=== PATIENT | male | born 1935 | race Caucasian/White ===

== ENCOUNTER 2017-08-24 15:57 | Emergency (ER) | payer OTHER ==
[2017-08-24 15:59] VITALS: BP 144/70; PULSE 92; RESP 14; TEMP 98.2; O2SAT 98
--- NOTE | 2017-08-24 16:38 | RADRPT ---
EXAM DATE/TIME: 08/24/2017 16:16 [facility] COMPARISON: No previous studies available for comparison. INDICATIONS : Shortness of breath. MEDICAL HISTORY : None. SURGICAL HISTORY : cervical spine. ENCOUNTER: Initial ACUITY: 1 day PAIN SCORE: 0/10 LOCATION: Bilateral chest FINDINGS: PA and lateral views of the chest demonstrate the lungs to be symmetrically aerated without evidence of mass, infiltrate or effusion. Some mild atelectasis in the left lung base. The cardiomediastinal c ontours are unremarkable. Osseous structures are intact. CONCLUSION: Mild atelectasis left lung base. Otherwise, the lungs are grossly clear. Todd Lugo MD on August 24, 2017 at 16:35 Board Certified Radiologist. This report was verified electronically.
[2017-08-24 17:03] LABS: AUTOMATED NEUTROPHIL # 13.8 TH/MM3 (1.8-7.7); BASOPHIL # 0.1 TH/MM3 (0-0.2); BASOPHIL % 0.8 % (0.0-2.0); EOSINOPHIL # 0.1 TH/MM3 (0-0.4); EOSINOPHIL % 0.8 % (0.0-4.0); HEMATOCRIT 44.1 % (39.0-51.0); LYMPHOCYTE # 1.4 TH/MM3 (1.0-4.8); MEAN CELL VOLUME 86.6 FL (80.0-100.0); MEAN CORPUSCULAR HEMOGLOBIN 29.5 PG (27.0-34.0); MEAN CORPUSCULAR HGB CONC 34.1 % (32.0-36.0); MEAN PLATELET VOLUME 9.4 FL (7.0-11.0); MONO % 9.2 % (0.0-8.0); MONOCYTE # 1.6 TH/MM3 (0-0.9); NEUT % 81.2 % (16.0-70.0); PLATELET COUNT 290 TH/MM3 (150-450)
[2017-08-24 17:39] LABS: ALBUMIN 2.9 GM/DL (3.4-5.0); ALT (GPT) 20 U/L (12-78); AST (GOT) 28 U/L (15-37); BLOOD UREA NITROGEN 33 MG/DL (7-18); CALCIUM 9.2 MG/DL (8.5-10.1); CHLORIDE 98 MEQ/L (98-107); CREATININE 1.58 MG/DL (0.60-1.30); GLOMERULAR FILTRATION RATE 42 ML/MIN (>89); GLUCOSE,RANDOM 119 MG/DL (74-106); MAGNESIUM 2.3 MG/DL (1.5-2.5); SODIUM (NA) 138 MEQ/L (136-145)
[2017-08-24 17:41] LABS: ALKALINE PHOSPHATASE 99 U/L (45-117); TOTAL PROTEIN 7.7 GM/DL (6.4-8.2)
[2017-08-24] MEDS ORDERED: SODIUM CHLOR 0.9% 1000 ML INJ 1,000 ML IV ONE (18:00)
--- NOTE | 2017-08-24 18:10 | PD ---
HPI Chief Complaint: General Weakness Time Seen by Provider: 17:44 Travel History International Travel<30 days: No Contact w/Intl Traveler<30days: No Traveled to known affect area: No History of Present Illness HPI 82-year-old male presents to the emergency department for evaluation of generalized weakness started on Monday, 3 days ago. Patient denies any headache. No fevers or chills. He denies any chest pain or shortness breath. No abdominal pain. No nausea, vomiting, diarrhea. He states that he feels generally weak and has body aches. He states he has not wanted to get out of bed for the past 3 days. He also has a decreased appetite. Patient states that he lives with daughter. Patient denies any chronic medical problems or taking any prescribed medications. He denies any syncope or falls. He denies any head injury. He has no pain at this time. Moderate severity. No exacerbating or alleviating factors. PFSH Social History Alcohol Use: No Tobacco Use: No Substance Use: No Allergies-Medications (Allergen,Severity, Reaction): Coded Allergies: No Known Allergies (Unverified Adverse Reaction, Unknown, 08/24/17) Reported Meds & Prescriptions Reported Meds & Active Scripts Active Ciprofloxacin (Ciprofloxacin HCl) 500 Mg Tab 500 Mg PO BID 10 Days Review of Systems Except as stated in HPI: all other systems reviewed are Neg Physical Exam Narrative GENERAL: Well-nourished, well-developed elderly male patient, afebrile. SKIN: Focused skin assessment warm/dry. HEAD: Normocephalic. Atraumatic. ENT: Mucosa pink and moist. No erythema or exudates. No uvular edema. No uvular , palatal, or tonsillar deviation. Airway patent. Nasal turbinates appear normal without nasal blood, purulent drainage or septal hematoma. Bilateral tympanic membranes are clear without erythema or perforation. EYES: No scleral icterus. No injection or drainage. NECK: Supple, trachea midline. No JVD or lymphadenopathy. CARDIOVASCULAR: Regular rate and rhythm without murmurs, gallops, or rubs. RESPIRATORY: Breath sounds equal bilaterally. No accessory muscle use. Lungs sounds clear to auscultation. GASTROINTESTINAL: Abdomen soft and nondistended. Patient has left lower quadrant tenderness to palpation. MUSCULOSKELETAL: No cyanosis, or edema. Bilateral upper and lower extremity strength 5/5. All extremities are neurovascularly intact. BACK: Nontender without obvious deformity. No CVA tenderness. Data Data Last Documented VS Vital Signs Date Time Temp Pulse Resp B/P (MAP) Pulse Ox O2 Delivery O2 Flow Rate FiO2 08/24/17 18:25 Room Air 08/24/17 18:22 80 16 151/76 (101) 95 08/24/17 15:59 98.2 Orders Orders Complete Blood Count With Diff (08/24/17 16:03) Comprehensive Metabolic Panel (08/24/17 16:03) B-Type Natriuretic Peptide (08/24/17 16:03) Magnesium (Mg) (08/24/17 16:03) Urinalysis - C+S If Indicated (08/24/17 16:03) Chest, Pa & Lat (08/24/17 ) Lactic Acid Sepsis Protocol (08/24/17 17:52) Blood Culture (08/24/17 17:52) Creatine Kinase (Cpk) (08/24/17 17:52) Troponin I (08/24/17 17:52) Lipase (08/24/17 17:52) Electrocardiogram (08/24/17 ) Act Partial Throm Time (Ptt) (08/24/17 17:52) Prothrombin Time / Inr (Pt) (08/24/17 17:52) Ct Abd/Pel W Iv Contrast(Rout) (08/24/17 ) Sodium Chlor 0.9% 1000 Ml Inj (Ns 1000 M (08/24/17 18:00) Iohexol 350 Inj (Omnipaque 350 Inj) (08/24/17 19:40) Urine Culture (08/24/17 19:43) Potassium Chloride (Kcl) (08/24/17 20:15) Ceftriaxone Inj (Rocephin Inj) (08/24/17 20:15) Ed Discharge Order (08/24/17 20:23) Labs Laboratory Tests Test 08/24/17 16:44 08/24/17 18:25 08/24/17 19:43 White Blood Count 17.0 TH/MM3 Red Blood Count 5.10 MIL/MM3 Hemoglobin 15.0 GM/DL Hematocrit 44.1 % Mean Corpuscular Volume 86.6 FL Mean Corpuscular Hemoglobin 29.5 PG Mean Corpuscular Hemoglobin Concent 34.1 % Red Cell Distribution Width 14.0 % Platelet Count 290 TH/MM3 Mean Platelet Volume 9.4 FL Neutrophils (%) (Auto) 81.2 % Lymphocytes (%) (Auto) 8.0 % Monocytes (%) (Auto) 9.2 % Eosinophils (%) (Auto) 0.8 % Basophils (%) (Auto) 0.8 % Neutrophils # (Auto) 13.8 TH/MM3 Lymphocytes # (Auto) 1.4 TH/MM3 Monocytes # (Auto) 1.6 TH/MM3 Eosinophils # (Auto) 0.1 TH/MM3 Basophils # (Auto) 0.1 TH/MM3 CBC Comment DIFF FINAL Differential Comment Blood Urea Nitrogen 33 MG/DL Creatinine 1.58 MG/DL Random Glucose 119 MG/DL Total Protein 7.7 GM/DL Albumin 2.9 GM/DL Calcium Level 9.2 MG/DL Magnesium Level 2.3 MG/DL Alkaline Phosphatase 99 U/L Aspartate Amino Transf (AST/SGOT) 28 U/L Alanine Aminotransferase (ALT/SGPT) 20 U/L Total Bilirubin 1.0 MG/DL Sodium Level 138 MEQ/L Potassium Level 3.0 MEQ/L Chloride Level 98 MEQ/L Carbon Dioxide Level 29.0 MEQ/L Anion Gap 11 MEQ/L Estimat Glomerular Filtration Rate 42 ML/MIN Total Creatine Kinase 31 U/L Troponin I 0.03 NG/ML B-Type Natriuretic Peptide 73 PG/ML Lipase 56 U/L Prothrombin Time 11.7 SEC Prothromb Time International Ratio 1.2 RATIO Activated Partial Thromboplast Time 29.1 SEC Lactic Acid Level 1.8 mmol/L Urine Color YELLOW Urine Turbidity HAZY Urine pH 6.0 Urine Specific [place] 1.013 Urine Protein TRACE mg/dL Urine Glucose (UA) NEG mg/dL Urine Ketones NEG mg/dL Urine Occult Blood MOD Urine Nitrite NEG Urine Bilirubin NEG Urine Urobilinogen LESS THAN 2.0 MG/DL Urine Leukocyte Esterase LARGE Urine RBC 53 /hpf Urine WBC 60 /hpf Urine Squamous Epithelial Cells 3 /hpf Urine Bacteria FEW /hpf Urine Hyaline Casts 1 /lpf Urine Mucus FEW /lpf Microscopic Urinalysis Comment CULTURE INDICATED MDM Medical Decision Making Medical Screen Exam Complete: Yes Emergency Medical Condition: Yes Medical Record Reviewed: Yes Differential Diagnosis Electrolyte abnormality versus dehydration versus ACS versus UTI versus pneumonia versus viral syndrome Narrative Course 82-year-old male presents to the emergency department for evaluation of generalized weakness that started 3 days ago. Labs were initiated in triage. CBC shows leukocytosis 17.0. CMP shows hypokalemia of 3.0, BUN 33, creatinine 1.58. BNP is 73. Magnesium is 2.3. Chest x-ray shows mild atelectasis left lung base, otherwise lungs are grossly clear. Lactic acid, blood cultures 2, CK, troponin, lipase, UA are ordered and pending. CT abdomen/pelvis with IV contrast is ordered and pending. EKG shows sinus rhythm, heart rate 80, no acute ST changes. Lactic acid is 1.8. Lipase is 56. CK is 31. Troponin is 0.03. UA shows 53 RBC, [address] abdomen/pelvis shows abnormal appearance to gallbladder, however non-acute, dilated urinary bladder. Patient is given potassium 40 mEq by mouth, Rocephin 1 g IV. I discussed results with the patient and his daughter bedside. The patient states that he wants to go home. He does not want to be admitted at this time. His daughter feels comfortable taking him home. Due to dilated batter on CT scan, patient voided and then Weinstein was placed to see post residual. He had over 600 mL else. He is having urinary retention. He states he has a history of this as well as in the past. Patient will be discharged with a leg bag and instructed to follow up with urologist. He'll be discharged with a prescription for ciprofloxacin. He is to return here for any acute worsening of symptoms. His daughter and the patient verbalizes agreement to this. They will follow-up at the [facility]. The patient was discharged in stable condition with instructions, including return instructions and follow up instructions. Diagnosis Primary Impression: Urinary tract infection Qualified Codes: N30.01 - Acute cystitis with hematuria Additional Impression: Urinary retention Referrals: Primary Care Physician 2 days Patient Instructions: General Instructions, Urinary Tract Infection in Men (ED) Additional Instructions: Take antibiotic as directed until gone. Follow-up with urology regarding urinary retention. Follow-up with your primary care physician. Return to the emergency department for any acute worsening of symptoms. Med/Other Pt SpecificInfo: Prescription(s) given Scripts Ciprofloxacin (Ciprofloxacin) 500 Mg Tab 500 MG PO BID for Infection for 10 Days, #20 TAB 0 Refills Prov: Dianna Valdes 08/24/17 Disposition: DISCHARGE HOME Condition: Stable Dianna Valdes Aug 24, 2017 18:10
[2017-08-24 18:22] VITALS: BP 151/76; PULSE 80; RESP 16; O2SAT 95
[2017-08-24 18:56] LABS: INTERNATIONAL NORMALIZED RATIO 1.2 RATIO; PROTHROMBIN TIME - PATIENT 11.7 SEC (9.8-11.6)
[2017-08-24 19:04] LABS: TROPONIN I 0.03 NG/ML (0.02-0.05)
[2017-08-24] MEDS ORDERED: IOHEXOL 350 MG/ML 10 ML VIAL (for RAD DIAG) IVCONTRAST ONE (19:40)
[2017-08-24 20:01] LABS: BACTERIA, URINE FEW /hpf; BILIRUBIN, URINE NEG (NEG); BLOOD, URINE MOD (NEG); GLUCOSE,URINE NEG (NEG); HYALINE CAST, URINE 1 /lpf (RARE); KETONE, URINE NEG (NEG); MUCUS URINE FEW /lpf (OCC); NITRITE,URINE NEG (NEG); SQUAMOUS EPITHELIAL CELL URINE 3 /hpf (0-5); URINE COLOR YELLOW (YELLW/STRAW); URINE LEUKOCYTE ESTERASE LARGE (NEG)
--- NOTE | 2017-08-24 20:07 | RADRPT ---
EXAM DATE/TIME: 08/24/2017 19:22 [facility] COMPARISON: No previous studies available for comparison. INDICATIONS : General weakness, body aches and nausea. IV CONTRAST: 75 cc Omnipaque 350 (iohexol) IV ORAL CONTRAST: No oral contrast ingested. RADIATION DOSE: 8.83 CTDIvol (mGy) MEDICAL HISTORY : Chronic obstructive pulmonary disease. SURGICAL HISTORY : Appendectomy. ENCOUNTER: Initial ACUITY: 1 week PAIN SCALE: 0/10 LOCATION: Abdomen. TECHNIQUE: Volumetric scanning of the abdomen and pelvis was performed. Using automated exposure control and ad justment of the mA and/or kV according to patient size, radiation dose was kept as low as reasonably achievable to obtain optimal diagnostic quality images. DICOM format image data is available electro nically for review and comparison. FINDINGS: LOWER LUNGS: The visualized lower lungs are clear. LIVER: Homogeneous density without lesion. There is no dilation of the biliary tree. Focal wall thickening versus dependent debris in the neck region of the gallbladder.. SPLEEN: Normal size without lesion. PANCREAS: Within normal limits. KIDNEYS: Normal in size and shape. There is no mass, stone or hydronephrosis. ADRENAL GLANDS: Within normal limits. VASCULAR: There is no aortic aneurysm. BOWEL/MESENTERY: The stomach, small bowel, and colon demonstrate no acute abnormality. There is no free intraperitone al air or fluid. ABDOMINAL WALL: Within normal limits. RETROPERITONEUM: There is no lymphadenopathy. BLADDER: Mildly dilated. REPRODUCTIVE: Prominent prostatic enlargement. No evidence of pelvic mass or free fluid INGUINAL: There is no lymphadenopathy or hernia. MUSCULOSKELETAL: Within normal limits for patient age. CONCLUSION: Abnormal appearance of the gallbladder, however nonacute. Dilated urinary bladder. Андрей Feldman MD on August 24, 2017 at 20:02 Board Certified Radiologist. This report was verified electronically.
[2017-08-24] MEDS ORDERED: cefTRIAXone INJ 1,000 MG in SODIUM CHLORIDE 0.9% INJ 100 ML IV ONE (20:15)
[2017-08-24] MEDS ORDERED: POTASSIUM CHLORIDE 20 MEQ CONTROLLED RELEASE TAB PO ONE (20:15)
[2017-08-24] MEDS ORDERED: CIPR500T2 PO (20:22)
--- NOTE | 2017-08-24 20:22 | PD ---
Physical Exam Narrative General: The patient is a well-developed well-nourished male in no acute distress. Head and Neck exam: Head is normocephalic atraumatic. Eyes: Pupils are equal round and reactive to light. Nose: Midline septum with pink mucous membranes Mouth: Dentition unremarkable. Moist mucus membranes. Posterior oropharynx is not erythematous. No tonsillar hypertrophy. Uvula midline. Airway patent. Neck: No palpable lymphadenopathy. No nuchal rigidity. No thyromegaly. Cardiovascular: Regular rate and rhythm without murmurs, gallops, or rubs. Lungs: Clear to auscultation bilaterally. No wheezes, rhonchi, or rales. Abdomen: Soft, with suprapubic tenderness on palpation. No tenderness on palpation of the other quadrants of the abdomen. No guarding, rebound, or rigidity. Normal bowel sounds are audible. No tenderness on palpation of McBurney's point. Extremities: No clubbing, cyanosis, or edema. 2+ pulses in all 4 extremities. No calf tenderness on palpation. Back: No costovertebral angle tenderness to palpation. Neurologic Exam: Grossly nonfocal. Skin Exam: No rash noted. Intact skin that is warm and dry. Data Data Last Documented VS Vital Signs Date Time Temp Pulse Resp B/P (MAP) Pulse Ox O2 Delivery O2 Flow Rate FiO2 08/24/17 22:25 08/24/17 22:24 74 18 97 Room Air 08/24/17 15:59 98.2 Orders Orders Complete Blood Count With Diff (08/24/17 16:03) Comprehensive Metabolic Panel (08/24/17 16:03) B-Type Natriuretic Peptide (08/24/17 16:03) Magnesium (Mg) (08/24/17 16:03) Urinalysis - C+S If Indicated (08/24/17 16:03) Chest, Pa & Lat (08/24/17 ) Lactic Acid Sepsis Protocol (08/24/17 17:52) Blood Culture (08/24/17 17:52) Creatine Kinase (Cpk) (08/24/17 17:52) Troponin I (08/24/17 17:52) Lipase (08/24/17 17:52) Electrocardiogram (08/24/17 ) Act Partial Throm Time (Ptt) (08/24/17 17:52) Prothrombin Time / Inr (Pt) (08/24/17 17:52) Ct Abd/Pel W Iv Contrast(Rout) (08/24/17 ) Sodium Chlor 0.9% 1000 Ml Inj (Ns 1000 M (08/24/17 18:00) Iohexol 350 Inj (Omnipaque 350 Inj) (08/24/17 19:40) Urine Culture (08/24/17 19:43) Potassium Chloride (Kcl) (08/24/17 20:15) Ceftriaxone Inj (Rocephin Inj) (08/24/17 20:15) Ed Discharge Order (08/24/17 20:23) Labs Laboratory Tests Test 08/24/17 16:44 08/24/17 18:25 08/24/17 19:43 White Blood Count 17.0 TH/MM3 Red Blood Count 5.10 MIL/MM3 Hemoglobin 15.0 GM/DL Hematocrit 44.1 % Mean Corpuscular Volume 86.6 FL Mean Corpuscular Hemoglobin 29.5 PG Mean Corpuscular Hemoglobin Concent 34.1 % Red Cell Distribution Width 14.0 % Platelet Count 290 TH/MM3 Mean Platelet Volume 9.4 FL Neutrophils (%) (Auto) 81.2 % Lymphocytes (%) (Auto) 8.0 % Monocytes (%) (Auto) 9.2 % Eosinophils (%) (Auto) 0.8 % Basophils (%) (Auto) 0.8 % Neutrophils # (Auto) 13.8 TH/MM3 Lymphocytes # (Auto) 1.4 TH/MM3 Monocytes # (Auto) 1.6 TH/MM3 Eosinophils # (Auto) 0.1 TH/MM3 Basophils # (Auto) 0.1 TH/MM3 CBC Comment DIFF FINAL Differential Comment Blood Urea Nitrogen 33 MG/DL Creatinine 1.58 MG/DL Random Glucose 119 MG/DL Total Protein 7.7 GM/DL Albumin 2.9 GM/DL Calcium Level 9.2 MG/DL Magnesium Level 2.3 MG/DL Alkaline Phosphatase 99 U/L Aspartate Amino Transf (AST/SGOT) 28 U/L Alanine Aminotransferase (ALT/SGPT) 20 U/L Total Bilirubin 1.0 MG/DL Sodium Level 138 MEQ/L Potassium Level 3.0 MEQ/L Chloride Level 98 MEQ/L Carbon Dioxide Level 29.0 MEQ/L Anion Gap 11 MEQ/L Estimat Glomerular Filtration Rate 42 ML/MIN Total Creatine Kinase 31 U/L Troponin I 0.03 NG/ML B-Type Natriuretic Peptide 73 PG/ML Lipase 56 U/L Prothrombin Time 11.7 SEC Prothromb Time International Ratio 1.2 RATIO Activated Partial Thromboplast Time 29.1 SEC Lactic Acid Level 1.8 mmol/L Urine Color YELLOW Urine Turbidity HAZY Urine pH 6.0 Urine Specific [place] 1.013 Urine Protein TRACE mg/dL Urine Glucose (UA) NEG mg/dL Urine Ketones NEG mg/dL Urine Occult Blood MOD Urine Nitrite NEG Urine Bilirubin NEG Urine Urobilinogen LESS THAN 2.0 MG/DL Urine Leukocyte Esterase LARGE Urine RBC 53 /hpf Urine WBC 60 /hpf Urine Squamous Epithelial Cells 3 /hpf Urine Bacteria FEW /hpf Urine Hyaline Casts 1 /lpf Urine Mucus FEW /lpf Microscopic Urinalysis Comment CULTURE INDICATED MDM Medical Record Reviewed: Yes Supervised Visit with MARILYN: Yes Interpretation(s) Last Impressions Chest X-Ray 08/24/17 0000 Signed Impressions: Service Date/Time: July 16:16 - CONCLUSION: Mild atelectasis left lung base. Otherwise, the lungs are grossly clear. Todd Lugo MD Abdomen/Pelvis CT 08/24/17 0000 Signed Impressions: Service Date/Time: July 19:22 - CONCLUSION: Abnormal appearance of the gallbladder, however nonacute. Dilated urinary bladder. Андрей Feldman MD Narrative Course I, Dr. Cooley, have reviewed the advance practice practitioner's documentation and am in agreement, met with the patient face to face, made the diagnosis, and the medical decision making was done by me. The patient was initially evaluated by Dianna. Please see their complete history and physical. *My assessment and Findings: The patient presents with a history of generalized weakness, poor by mouth intake that began earlier in the week. During the course of the patients emergency department visit, the patients history, examination, and differential diagnosis were reviewed with the patient. The patient was placed on a monitor technician with oximetry and frequent blood pressure monitoring. The patient had IV access obtained and blood work sent for analysis. The patient had an ECG done on arrival that shows a sinus rhythm heart rate of 80, QRS duration 101 ms, QTC 406 ms, no acute ST segment elevation or depression. The patient was initially provided normal saline 1 L IV fluid bolus. The patients laboratory studies were reviewed and remarkable for a white count of 17, hemoglobin 15, platelets 290 with 81.2 neutrophils, lymphocytes 8, monocytes 9.2. CMP is remarkable for potassium of 3.0 which was supplemented orally, BUN 33, creatinine 1.58, glucose 119, albumin 2.9, lipase 56, CPK 31, troponin I 0.03, lactic acid 1.8. PT 11.7, PTT 29.1, urinalysis shows moderate occult blood, 53 rbc's, wbc's 60, few bacteria, culture indicated. The patient was given Rocephin 1 g IV. Radiology studies were reviewed and remarkable for a chest x-ray that shows mild atelectasis in the left lung base otherwise lungs are clear. CT scan of the abdomen and pelvis shows an abnormal appearance of the gallbladder, however this appears to be nonacute, dilated urinary bladder. The patient has been able to urinate regularly in the emergency department, however to rule out urinary retention a bladder scan will be done. A bladder scanner was reportedly malfunctioning, therefore the patient was asked to urinate and reported that he did not need to. The patient then had a Weinstein catheter placed to gravity to evaluate for residual urine. The patient was noted to have 900 mL of urine out after catheter placement. The patient will have the Weinstein catheter placed to a leg bag. The patient reports that he does have a history of urinary retention in the past. The patient will follow-up with his urologist. The patient was given a copy of his CT scan of the abdomen and pelvis results regarding his chronic-appearing abnormality of the gallbladder. The patient has no right upper quadrant tenderness on palpation. The patient was offered admission to the hospital for continued IV hydration and IV antibiotic, however the patient prefers to follow-up with his primary care physician as an outpatient. His daughter is at the bedside and reports that she will watch him closely. It was recommended that he continue to push fluids and get plenty of rest and started on the oral antibiotic in the next 24 hours. The patient is resting comfortably and feels better, is alert and in no distress. The patients results and examination findings were discussed with the patient. The repeat examination is unremarkable and benign. The history, exam, diagnostic testing, and current condition do not suggest any significant pathology to warrant further testing, continued ED treatment, admission, or surgical evaluation at this point. The vital signs have been stable. The patient does not have uncontrollable pain, intractable vomiting, or other significant symptoms. The patient's condition is stable and appropriate for discharge. The patient will pursue further outpatient evaluation with a primary care physician or other designated or consulting physician as indicated in the discharge instructions. The patient expressed understanding and was agreeable with this plan. Diagnosis Primary Impression: Urinary tract infection Qualified Codes: N30.01 - Acute cystitis with hematuria Additional Impression: Urinary retention Scripts Ciprofloxacin (Ciprofloxacin) 500 Mg Tab 500 MG PO BID for Infection for 10 Days, #20 TAB 0 Refills Prov: Dianna Valdes 08/24/17 Juanita Cooley MD Aug 24, 2017 20:22
[2017-08-24 22:24] VITALS: BP 147/71; PULSE 74; RESP 18; O2SAT 97
--- NOTE | 2017-08-25 14:49 | EKG ---
Date Performed: 08/24/2017 Time Performed: 18:06:46 PTAGE: 82 years EKG: Sinus rhythm Since previous tracing, no significant change noted NORMAL ECG PREVIOUS TRACING : 03/13/2015 12.27 DOCTOR: Eugene Levin Interpretating Date/Time 08/25/2017 14:48:25
== END 2017-08-24 22:26 | disposition home or self-care (01) ==
LOC: NEPE 15:57
DX: N30.01 Acute cystitis with hematuria (principal); R33.9 Retention of urine, unspecified
CPT/HCPCS: 71020; 74177; 80053; 81001; 82550; 83605; 83690; 83735; 83880; 84484; 85025; 85610; 85730; 87040; 87086; 93005; 96361; 96365; 99285; J0696; J7030; Q9967

== ENCOUNTER 2017-08-31 09:48 | Emergency (ER) | payer OTHER ==
[~2017-08-31] VITALS: Ht 167.6 cm; Wt 90.0 kg
[~2017-08-31 09:48] MED LIST: CIPR500T2 PO
[2017-08-31 09:54] VITALS: TEMP 97.8
[2017-08-31 09:58] VITALS: BP 171/74; PULSE 67; RESP 18; O2SAT 100
[2017-08-31] MEDS ORDERED: TAMS0.4C4 PO (10:09)
[2017-08-31] MEDS ORDERED: FINA5TAB2 PO (10:09)
[2017-08-31] MEDS ORDERED: NAPR500T2 PO (10:09)
[2017-08-31] MEDS ORDERED: ATOR20TA15 PO (10:09)
[2017-08-31 10:23] LABS: AUTOMATED NEUTROPHIL # 11.1 TH/MM3 (1.8-7.7); BASOPHIL # 0.1 TH/MM3 (0-0.2); BASOPHIL % 0.6 % (0.0-2.0); EOSINOPHIL # 0.4 TH/MM3 (0-0.4); EOSINOPHIL % 2.5 % (0.0-4.0); HEMATOCRIT 38.1 % (39.0-51.0); HEMOGLOBIN 12.9 GM/DL (13.0-17.0); LYMPHOCYTE # 1.6 TH/MM3 (1.0-4.8); MEAN CELL VOLUME 86.7 FL (80.0-100.0); MEAN CORPUSCULAR HEMOGLOBIN 29.4 PG (27.0-34.0); MEAN CORPUSCULAR HGB CONC 33.9 % (32.0-36.0); MEAN PLATELET VOLUME 8.8 FL (7.0-11.0); MONO % 8.6 % (0.0-8.0); MONOCYTE # 1.2 TH/MM3 (0-0.9); NEUT % 77.3 % (16.0-70.0); PLATELET COUNT 357 TH/MM3 (150-450); RED BLOOD COUNT 4.39 MIL/MM3 (4.50-5.90); RED CELL DISTRIBUTION WIDTH 13.8 % (11.6-17.2); WHITE BLOOD COUNT 14.4 TH/MM3 (4.0-11.0)
--- NOTE | 2017-08-31 10:26 | PD ---
HPI Chief Complaint: Cardiac Complaint Time Seen by Provider: 10:21 Travel History International Travel<30 days: No Contact w/Intl Traveler<30days: No Traveled to known affect area: No History of Present Illness HPI 82-year-old male [facility] patient with history of high cholesterol, BPH, presents to the ER today brought in by EMS, apparently was at his urology clinic visit at the [place] when he started to get upset and started to get a right sided chest pain that lasted about an hour. He states is completely gone now. Pain was initially described as sharp and right sided rating it a 7 out of 10. He does not know any exacerbating alleviating factors. He denies any coughing, fevers, but does have some shortness of breath which has been there for some time. He denies any fevers, denies any previous history of chest pains. Modifying Factors: None Associated Signs & Symptoms: Right sided chest pain Risk Factors: None PFSH Past Medical History Chest Pain: Yes COPD: Yes Genitourinary: Yes (prostate, RETENSION ) Immunizations Current: Yes Past Surgical History Appendectomy: Yes Neurologic Surgery: Yes (neck surgery x 2 ) Social History Alcohol Use: No Tobacco Use: Yes (PIPE X 3 TIMES A DAY ) Substance Use: No Allergies-Medications (Allergen,Severity, Reaction): Coded Allergies: No Known Allergies (Unverified Adverse Reaction, Unknown, 08/24/17) Reported Meds & Prescriptions Reported Meds & Active Scripts Active Reported Tamsulosin (Tamsulosin HCl) 0.4 Mg Cap 0.4 Mg PO HS Naproxen 500 Mg Tab 500 Mg PO BID Finasteride 5 Mg Tab 5 Mg PO DAILY Do not crush. Atorvastatin (Atorvastatin Calcium) 20 Mg Tab 20 Mg PO HS Review of Systems Except as stated in HPI: all other systems reviewed are Neg Physical Exam Narrative GENERAL: Well-developed elderly white male patient currently in mild distress. Awake and oriented 3. SKIN: Focused skin assessment warm/dry. HEAD: Atraumatic. Normocephalic. EYES: Pupils equal and round. No scleral icterus. No injection or drainage. ENT: No nasal bleeding or discharge. Mucous membranes pink and moist. NECK: Trachea midline. No JVD. Supple. CARDIOVASCULAR: Regular rate and rhythm. No murmur appreciated. RESPIRATORY: No accessory muscle use. Clear to auscultation. Breath sounds equal bilaterally. GASTROINTESTINAL: Abdomen soft, non-tender, nondistended. Hepatic and splenic margins not palpable. MUSCULOSKELETAL: No obvious deformities. No clubbing. No cyanosis. Trace pitting edema both legs. NEUROLOGICAL: Awake and alert. No obvious cranial nerve deficits. Motor grossly within normal limits. Normal speech. PSYCHIATRIC: Appropriate mood and affect; insight and judgment normal. Data Data Last Documented VS Vital Signs Date Time Temp Pulse Resp B/P (MAP) Pulse Ox O2 Delivery O2 Flow Rate FiO2 08/31/17 09:58 67 18 171/74 (106) 100 Nasal Cannula 2.00 08/31/17 09:54 97.8 Orders Orders Electrocardiogram (08/31/17 ) Complete Blood Count With Diff (08/31/17 09:53) Basic Metabolic Panel (Bmp) (08/31/17 09:53) Act Partial Throm Time (Ptt) (08/31/17 09:53) Troponin I (08/31/17 09:53) B-Type Natriuretic Peptide (08/31/17 10:21) Chest, Single Ap (08/31/17 10:21) Potassium Chloride Powder (Kcl Powder) (08/31/17 11:15) Labs Laboratory Tests Test 08/31/17 10:00 White Blood Count 14.4 TH/MM3 Red Blood Count 4.39 MIL/MM3 Hemoglobin 12.9 GM/DL Hematocrit 38.1 % Mean Corpuscular Volume 86.7 FL Mean Corpuscular Hemoglobin 29.4 PG Mean Corpuscular Hemoglobin Concent 33.9 % Red Cell Distribution Width 13.8 % Platelet Count 357 TH/MM3 Mean Platelet Volume 8.8 FL Neutrophils (%) (Auto) 77.3 % Lymphocytes (%) (Auto) 11.0 % Monocytes (%) (Auto) 8.6 % Eosinophils (%) (Auto) 2.5 % Basophils (%) (Auto) 0.6 % Neutrophils # (Auto) 11.1 TH/MM3 Lymphocytes # (Auto) 1.6 TH/MM3 Monocytes # (Auto) 1.2 TH/MM3 Eosinophils # (Auto) 0.4 TH/MM3 Basophils # (Auto) 0.1 TH/MM3 CBC Comment DIFF FINAL Differential Comment Activated Partial Thromboplast Time 26.6 SEC Blood Urea Nitrogen 20 MG/DL Creatinine 1.68 MG/DL Random Glucose 104 MG/DL Calcium Level 8.1 MG/DL Sodium Level 140 MEQ/L Potassium Level 2.8 MEQ/L Chloride Level 102 MEQ/L Carbon Dioxide Level 30.3 MEQ/L Anion Gap 8 MEQ/L Estimat Glomerular Filtration Rate 39 ML/MIN Troponin I 0.02 NG/ML [facility] Medical Decision Making Medical Screen Exam Complete: Yes Emergency Medical Condition: Yes Medical Record Reviewed: Yes Interpretation(s) EKG shows normal sinus rhythm at a rate of 60 bpm with no signs of acute ST-T elevations or depressions. Laboratory Tests Test 08/31/17 10:00 White Blood Count 14.4 TH/MM3 (4.0-11.0) Red Blood Count 4.39 MIL/MM3 (4.50-5.90) Hemoglobin 12.9 GM/DL (13.0-17.0) Hematocrit 38.1 % (39.0-51.0) Neutrophils (%) (Auto) 77.3 % (16.0-70.0) Monocytes (%) (Auto) 8.6 % (0.0-8.0) Neutrophils # (Auto) 11.1 TH/MM3 (1.8-7.7) Monocytes # (Auto) 1.2 TH/MM3 (0-0.9) Blood Urea Nitrogen 20 MG/DL (7-18) Creatinine 1.68 MG/DL (0.60-1.30) Calcium Level 8.1 MG/DL (8.5-10.1) Potassium Level 2.8 MEQ/L (3.5-5.1) Estimat Glomerular Filtration Rate 39 ML/MIN (>89) Last 24 hours Impressions Chest X-Ray 08/31/17 1021 Signed Impressions: Service Date/Time: August 10:26 - CONCLUSION: 1. No acute cardiopulmonary disease. Kevyn Matamoros MD Differential Diagnosis Right sided chest pain: Anxiety versus dysrhythmias versus ACS versus pneumonia Narrative Course EKG did not show any significant dysrhythmias or any signs of ST changes. He does have a potassium which is low at 2.8. Potassium by mouth was given in the ER. Cardiac enzymes are negative. Chest x-ray did not show any signs of pneumonia. Patient is completely chest pain-free in the ER. At this point, considering his age and risk factors, I have recommended admission to chest pain center for further evaluation a chest pains. However, the patient is declining stating that he has had no previous heart problems. However, I have noted that he is at a higher risk due to age and medical history, and I would recommend further follow-up and admission for cardiac issues. Patient states he understands, but is declining at this time, stating he does not want to stay. I have talked him about the fact that we would be unable to rule out underlying cardiac processes and that he can have an ME or other cardiac related issues and , we aren't able to risk stratify him at this point. He states understanding and states he still does not want to stay. I have [facility] Further potassium replacement will be given by mouth as well. Return for any worsening in symptoms. Diagnosis Primary Impression: Atypical chest pain Additional Impression: Hypokalemia Med/Other Pt SpecificInfo: Prescription(s) given Scripts Potassium Chloride ER (K-Tab) 20 Meq Tab 20 MEQ PO BID for Electrolyte Replacement, #10 TAB 0 Refills Prov: Robin Stein MD 08/31/17 Disposition: DISCHARGE HOME Condition: Stable Robin Stein MD Aug 31, 2017 10:26
[2017-08-31 10:40] LABS: BICARBONATE 30.3 MEQ/L (21.0-32.0); CALCIUM 8.1 MG/DL (8.5-10.1); CREATININE 1.68 MG/DL (0.60-1.30); TROPONIN I 0.02 NG/ML (0.02-0.05)
--- NOTE | 2017-08-31 11:06 | RADRPT ---
EXAM DATE/TIME: 08/31/2017 10:26 [facility] COMPARISON: CHEST SINGLE AP, March 13, 2015, 12:29. INDICATIONS : Right side chest pain. MEDICAL HISTORY : Chronic obstructive pulmonary disease. SURGICAL HISTORY : Appendectomy. Fusion, cervical. ENCOUNTER: Subsequent ACUITY: 1 day PAIN SCORE: 4/10 LOCATION: Right chest FINDINGS: The cardiac silhouette is normal in transverse diameter. The lungs are free of acute parenchymal opac ity. No effusions are identified. The aortic knob is prominent with tortuosity of the descending thor acic aorta. CONCLUSION: 1. No acute cardiopulmonary disease. Kevyn Matamoros MD on August 31, 2017 at 11:04 Board Certified Radiologist. This report was verified electronically.
[2017-08-31] MEDS ORDERED: POTASSIUM CHLORIDE 20 MEQ PWD PACKET PO ONE (11:15)
[2017-08-31] MEDS ORDERED: POTA1TAB4 PO (11:25)
--- NOTE | 2017-09-01 18:31 | EKG ---
Date Performed: 08/31/2017 Time Performed: 09:58:36 PTAGE: 82 years EKG: Sinus rhythm NORMAL ECG PREVIOUS TRACING : 08/24/2017 18.06 DOCTOR: Clement Fontenot Interpretating Date/Time 09/01/2017 18:31:07
== END 2017-08-31 12:56 | disposition home or self-care (01) ==
LOC: NEPE 09:48
DX: R07.89 Other chest pain (principal); E87.6 Hypokalemia; R06.02 Shortness of breath; N40.0 Benign prostatic hyperplasia without lower urinary tract symptoms; E78.00 Pure hypercholesterolemia, unspecified; J44.9 Chronic obstructive pulmonary disease, unspecified; Z72.0 Tobacco use
CPT/HCPCS: 71045; 80048; 83880; 84484; 85025; 85730; 93005

== ENCOUNTER 2017-09-18 09:24 | Inpatient (IN) | payer OTHER ==
[2017-09-18 10:54] LABS: AUTOMATED NEUTROPHIL # 17.4 TH/MM3 (1.8-7.7); BASOPHIL # 0.2 TH/MM3 (0-0.2); BASOPHIL % 0.8 % (0.0-2.0); EOSINOPHIL # 0.8 TH/MM3 (0-0.4); EOSINOPHIL % 3.6 % (0.0-4.0); HEMATOCRIT 37.5 % (39.0-51.0); HEMO FLAGS DIFF FINAL; HEMOGLOBIN 13.2 GM/DL (13.0-17.0); LYMPH % 9.9 % (9.0-44.0); LYMPHOCYTE # 2.1 TH/MM3 (1.0-4.8); MEAN CELL VOLUME 85.1 FL (80.0-100.0); MEAN CORPUSCULAR HGB CONC 35.3 % (32.0-36.0); MEAN PLATELET VOLUME 9.5 FL (7.0-11.0); MONOCYTE # 1.1 TH/MM3 (0-0.9); NEUT % 80.7 % (16.0-70.0); PLATELET COUNT 335 TH/MM3 (150-450); RED BLOOD COUNT 4.41 MIL/MM3 (4.50-5.90); WHITE BLOOD COUNT 21.7 TH/MM3 (4.0-11.0)
[2017-09-18 11:13] LABS: ALBUMIN 2.9 GM/DL (3.4-5.0); ALT (GPT) 16 U/L (12-78); ANION GAP 8 MEQ/L (5-15); AST (GOT) 18 U/L (15-37); BICARBONATE 31.4 MEQ/L (21.0-32.0); CALCIUM 9.2 MG/DL (8.5-10.1); CHLORIDE 100 MEQ/L (98-107); CREATININE 1.66 MG/DL (0.60-1.30); GLOMERULAR FILTRATION RATE 40 ML/MIN (>89); GLUCOSE,RANDOM 93 MG/DL (74-106); POTASSIUM 3.1 MEQ/L (3.5-5.1); SODIUM (NA) 139 MEQ/L (136-145)
[2017-09-18 11:20] LABS: ALKALINE PHOSPHATASE 98 U/L (45-117); BLOOD UREA NITROGEN 19 MG/DL (7-18); TOTAL BILIRUBIN ADULT 0.9 MG/DL (0.2-1.0); TOTAL PROTEIN 7.9 GM/DL (6.4-8.2)
[2017-09-18 11:21] LABS: CREATINE KINASE 22 U/L (39-308)
[2017-09-18 11:46] LABS: BACTERIA, URINE RARE /hpf; BILIRUBIN, URINE NEG (NEG); BLOOD, URINE LARGE (NEG); COMMENT (UR) CULTURE INDICATED; CULTURE IF INDICATED CULTURE INDICATED; GLUCOSE,URINE NEG (NEG); HYALINE CAST, URINE 7 /lpf (RARE); KETONE, URINE NEG (NEG); MUCUS URINE FEW /lpf (OCC); NITRITE,URINE NEG (NEG); URINE COLOR YELLOW (YELLW/STRAW); URINE LEUKOCYTE ESTERASE LARGE (NEG)
[2017-09-18] MEDS: cefTRIAXone INJ 1,000 MG in SODIUM CHLORIDE 0.9% INJ 100 ML IV (12:11)
[2017-09-18] MEDS: SODIUM CHLOR 0.9% 1000 ML INJ 1,000 ML IV (12:11)
[2017-09-18] MEDS ORDERED: ONDANSETRON HCL 4 MG/2 ML VIAL IVP (12:30)
[2017-09-18] MEDS ORDERED: SODIUM CHLORIDE 0.9% FLUSH 10 ML FLUSH IV FLUSH (12:30)
[2017-09-18] MEDS ORDERED: MAGNESIUM HYDROXIDE SUSP 30 ML CUP PO (12:30)
[2017-09-18] MEDS ORDERED: traMADol HCL 50 MG TAB PO (12:30)
[2017-09-18] MEDS ORDERED: NALOXONE HCL 0.4 MG/ML AMP IV PUSH (12:30)
[2017-09-18 13:17] LABS: LACTIC ACID 1.1 mmol/L (0.4-2.0)
[2017-09-18] MEDS: ENOXAPARIN SODIUM 40 MG/0.4 ML SYRINGE SQ (14:14)
[2017-09-18] MEDS: LACTOBACILLUS ACIDOPHILUS TAB PO ×2 (14:14→17:24)
[2017-09-18] MEDS: SODIUM CHLORIDE 0.9% FLUSH 10 ML FLUSH IV FLUSH (20:51)
[2017-09-19 08:34] LABS: AUTOMATED NEUTROPHIL # 6.6 TH/MM3 (1.8-7.7); BASOPHIL # 0.1 TH/MM3 (0-0.2); BASOPHIL % 0.8 % (0.0-2.0); EOSINOPHIL # 0.8 TH/MM3 (0-0.4); EOSINOPHIL % 7.9 % (0.0-4.0); HEMATOCRIT 35.7 % (39.0-51.0); HEMO FLAGS DIFF FINAL; HEMOGLOBIN 12.2 GM/DL (13.0-17.0); LYMPH % 20.4 % (9.0-44.0); LYMPHOCYTE # 2.2 TH/MM3 (1.0-4.8); MEAN CELL VOLUME 84.9 FL (80.0-100.0); MEAN CORPUSCULAR HEMOGLOBIN 28.9 PG (27.0-34.0); MEAN CORPUSCULAR HGB CONC 34.1 % (32.0-36.0); MEAN PLATELET VOLUME 9.4 FL (7.0-11.0); MONO % 8.1 % (0.0-8.0); MONOCYTE # 0.9 TH/MM3 (0-0.9); NEUT % 62.8 % (16.0-70.0); PLATELET COUNT 314 TH/MM3 (150-450); RED BLOOD COUNT 4.21 MIL/MM3 (4.50-5.90); RED CELL DISTRIBUTION WIDTH 13.5 % (11.6-17.2); WHITE BLOOD COUNT 10.6 TH/MM3 (4.0-11.0)
[2017-09-19 08:55] LABS: ALBUMIN 2.4 GM/DL (3.4-5.0); ALT (GPT) 12 U/L (12-78); ANION GAP 7 MEQ/L (5-15); AST (GOT) 15 U/L (15-37); BICARBONATE 30.1 MEQ/L (21.0-32.0); BLOOD UREA NITROGEN 22 MG/DL (7-18); CALCIUM 8.2 MG/DL (8.5-10.1); CHLORIDE 105 MEQ/L (98-107); CREATININE 1.27 MG/DL (0.60-1.30); GLOMERULAR FILTRATION RATE 54 ML/MIN (>89); GLUCOSE,RANDOM 88 MG/DL (74-106); SODIUM (NA) 142 MEQ/L (136-145)
[2017-09-19 08:59] LABS: ALKALINE PHOSPHATASE 85 U/L (45-117); TOTAL BILIRUBIN ADULT 0.4 MG/DL (0.2-1.0); TOTAL PROTEIN 6.7 GM/DL (6.4-8.2)
[2017-09-19] MEDS: LACTOBACILLUS ACIDOPHILUS TAB PO ×3 (09:17→18:40)
[2017-09-19] MEDS: SODIUM CHLORIDE 0.9% FLUSH 10 ML FLUSH IV FLUSH ×2 (09:18→21:30)
[2017-09-19] MEDS: ENOXAPARIN SODIUM 40 MG/0.4 ML SYRINGE SQ (13:11)
[2017-09-19] MEDS: POTASSIUM CHLORIDE 10 MEQ CAP PO (13:12)
[2017-09-19] MEDS: cefTRIAXone INJ 1,000 MG in SODIUM CHLORIDE 0.9% INJ 100 ML IV (13:21)
[2017-09-19] MEDS: traMADol HCL 50 MG TAB PO (21:29)
[2017-09-20] MEDS: SODIUM CHLORIDE 0.9% FLUSH 10 ML FLUSH IV FLUSH (08:53)
[2017-09-20] MEDS: LACTOBACILLUS ACIDOPHILUS TAB PO ×3 (08:53→18:00)
[2017-09-20 09:28] LABS: ANION GAP 6 MEQ/L (5-15); BICARBONATE 29.9 MEQ/L (21.0-32.0); BLOOD UREA NITROGEN 15 MG/DL (7-18); CALCIUM 8.5 MG/DL (8.5-10.1); CHLORIDE 103 MEQ/L (98-107); CREATININE 0.98 MG/DL (0.60-1.30); GLOMERULAR FILTRATION RATE 73 ML/MIN (>89); GLUCOSE,RANDOM 78 MG/DL (74-106); POTASSIUM 3.3 MEQ/L (3.5-5.1); SODIUM (NA) 139 MEQ/L (136-145)
[2017-09-20] MEDS: cefTRIAXone INJ 1,000 MG in SODIUM CHLORIDE 0.9% INJ 100 ML IV (11:49)
[2017-09-20] MEDS: ENOXAPARIN SODIUM 40 MG/0.4 ML SYRINGE SQ (11:49)
== END 2017-09-20 19:35 | disposition home or self-care (01) | DRG 699 ==
LOC: NEPE 09:24 → NEDA 12:29 → N05A 16:25
PROVIDERS: Family Medicine
PROC: 0T2BX0Z Change Drainage Device in Bladder, External Approach (ICD-10-PCS; principal; 2017-09-18)
DX: T83.511A Infection and inflammatory reaction due to indwelling urethral catheter, initial encounter (principal); N13.8 Other obstructive and reflux uropathy; N17.9 Acute kidney failure, unspecified; J44.9 Chronic obstructive pulmonary disease, unspecified; S09.90XA Unspecified injury of head, initial encounter; W19.XXXA Unspecified fall, initial encounter; B35.1 Tinea unguium; F17.290 Nicotine dependence, other tobacco product, uncomplicated; E87.6 Hypokalemia; N39.0 Urinary tract infection, site not specified; N40.1 Benign prostatic hyperplasia with lower urinary tract symptoms; R53.1 Weakness
CPT/HCPCS: 70450; 71045; 80048; 80053; 81001; 82550; 83605; 85025; 86403; 87040; 87086; 87149-59; 87205; 93005; 96365; 97162-GP; 99285-25